=== PATIENT | male | born 1965 | race African-American/Black ===

== ENCOUNTER → 2017-04-16 | Outpatient (REF) ==
--- NOTE | 2017-04-16 10:51 | REP ---
Clinical: Pain and disability. Technique: AP, lateral and coned-down views of the lumbosacral spine. Findings: Advanced degenerative changes at the L1/L2 level include mild old compression deformity at L2 with chronic bridging osteophytes/partial fusion. Associated osteophytosis and end plate irregularities with disc space narrowing at the T12-L1 and L2-3 levels noted. Remainder examination appears relatively normal for age. Impression: Advanced degenerative disc osteophyte complexes primarily involving the T12-L1 through L2-L3 levels. Signed by Nam Plaza MD 04/16/2017 10:43 A
== END ==
LOC: M SMT 10:11
PROVIDERS: ATTEND Internal Medicine
DX: M51.36 Other intervertebral disc degeneration, lumbar region (principal)